=== PATIENT | female | born 1955 | race Caucasian/White ===

== ENCOUNTER 2018-09-28 17:15 | Emergency (ER) | payer BC ==
--- NOTE | 2018-09-28 17:52 | EDM.PDOC ---
ED HPI GENERAL MEDICAL PROBLEM - General Chief Complaint: Lower Extremity Injury/Pain Stated Complaint: FOOT INJURY Time Seen by Provider: 09/28/18 17:50 - History of Present Illness INITIAL COMMENTS - FREE TEXT/NARRATIVE: HISTORY AND PHYSICAL: History of present illness: Patient is 62-year-old female presents status post injury to her right foot ankle and knee when she stepped into a hole earlier today. There is no other trauma or concern. She does have a history of 2 years status post total right knee replacement Review of systems: As per history of present illness and below otherwise all systems reviewed and negative. Past medical history: As per history of present illness and as reviewed below otherwise noncontributory. Surgical history: As per history of present illness and as reviewed below otherwise noncontributory. Social history: No reported history of drug or alcohol abuse. Family history: As per history of present illness and as reviewed below otherwise noncontributory. Physical exam: HEENT: Atraumatic, normocephalic, pupils reactive, negative for conjunctival pallor or scleral icterus, mucous membranes moist, throat clear, neck supple, nontender, trachea midline. Lungs: Clear to auscultation, breath sounds equal bilaterally, chest nontender. Heart: S1S2, regular, negative for clicks, rubs, or JVD. Abdomen: Soft, nondistended, nontender. Negative for masses or hepatosplenomegaly. Negative for costovertebral tenderness. Pelvis: Stable nontender. Genitourinary: Deferred. Rectal: Deferred. Extremities: Dorsal lateral aspect of foot is noted some swelling and mild tenderness?no point tenderness some mild tenderness and swelling in region of lateral malleolus of her right ankle Achilles tendon is intact knee is grossly stable Neuro: Awake, alert, oriented. Cranial nerves II through XII unremarkable. Cerebellum unremarkable. Motor and sensory unremarkable throughout. Exam nonfocal. Diagnostics: X-ray right foot/ankle/knee Therapeutics: To be determined Impression: #1 acute right foot/ankle/knee injury Definitive disposition and diagnosis as appropriate pending reevaluation and review of above. Right Foot Pain Score (Numeric/FACES): 6 - Related Data Allergies Allergy/AdvReac Type Severity Reaction Status Date / Time aspirin Allergy Airway Verified 09/28/18 17:31 Tightness diphenhydramine Allergy Other Verified 09/28/18 17:31 [From Benadryl] Penicillins Allergy Itching Verified 09/28/18 17:31 ranitidine [From Zantac] Allergy Airway Verified 09/28/18 17:31 Tightness sulfamethoxazole Allergy Redness Verified 09/28/18 17:31 [From Bactrim] trimethoprim [From Bactrim] Allergy Redness Verified 09/28/18 17:31 c-clor Allergy Itching Uncoded 09/28/18 17:31 Home Meds: Home Meds Pantoprazole Sodium [Protonix] 20 mg PO DAILY 09/28/18 [History] Past Medical History - Infectious Disease History Infectious Disease History: Reports: Chicken Pox, Measles, Mumps - Past Surgical History GI Surgical History: Reports: Cholecystectomy Female Surgical History: Reports: Hysterectomy Musculoskeletal Surgical History: Reports: Knee Replacement, Shoulder Surgery Other Musculoskeletal Surgeries/Procedures:: bilaterally Social & Family History - Family History Family Medical History: Noncontributory - Tobacco Use Smoking Status *Q: Never Smoker - Caffeine Use Caffeine Use: Reports: Coffee, Tea - Recreational Drug Use Recreational Drug Use: No Review of Systems - Review of Systems Review Of Systems: ROS reveals no pertinent complaints other than HPI. ED EXAM, GENERAL - Physical Exam Exam: See Below (See dictation) Course - Vital Signs Last Recorded V/S: Last Vital Signs Temp 36.4 C 09/28/18 17:32 Pulse 91 09/28/18 17:32 Resp 17 09/28/18 17:32 BP 136/87 09/28/18 17:32 Pulse Ox 94 L 09/28/18 17:32 - Orders/Labs/Meds Orders: Active Orders 24 hr Category Date Time Status Ankle 2V Rt [CR] Stat Exams 09/28/18 17:52 Taken Foot 2V Rt [CR] Stat Exams 09/28/18 17:52 Taken Knee 1V or 2V Rt [CR] Stat Exams 09/28/18 17:52 Taken Departure - Departure Time of Disposition: 18:35 Disposition: Home, Self-Care 01 Condition: Good Clinical Impression: Ankle injury, Foot injury, Knee injury - Discharge Information Referrals: PCP,Unknown [Primary Care Provider] - Forms: ED Department Discharge Additional Instructions: The following information is given to patients seen in the emergency department who are being discharged to home. This information is to outline your options for follow-up care. We provide all patients seen in our emergency department with a follow-up referral. The need for follow-up, as well as the timing and circumstances, are variable depending upon the specifics of your emergency department visit. If you don't have a primary care physician on staff, we will provide you with a referral. We always advise you to contact your personal physician following an emergency department visit to inform them of the circumstance of the visit and for follow-up with them and/or the need for any referrals to a consulting specialist. The emergency department will also refer you to a specialist when appropriate. This referral assures that you have the opportunity for followup care with a specialist. All of these measure are taken in an effort to provide you with optimal care, which includes your followup. Under all circumstances we always encourage you to contact your private physician who remains a resource for coordinating your care. When calling for followup care, please make the office aware that this follow-up is from your recent emergency room visit. If for any reason you are refused follow-up, please contact the [facility] emergency department at and asked to speak to the emergency department charge nurse. Motrin/Tylenol as directed crutches as directed follow-up primary medical doctor /orthopedics surgery is needed as discussed return as needed as discussed - My Orders Last 24 Hours: My Active Orders 09/28/18 17:52 Ankle 2V Rt [CR] Stat Foot 2V Rt [CR] Stat Knee 1V or 2V Rt [CR] Stat - Assessment/Plan Last 24 Hours: My Active Orders 09/28/18 17:52 Ankle 2V Rt [CR] Stat Foot 2V Rt [CR] Stat Knee 1V or 2V Rt [CR] Stat
--- NOTE | 2018-09-28 19:14 | CR ---
Indication: Stepped in gopher hole Technique: Right ankle 2 views. Comparison: None Findings: Bones: No evidence of fracture. Well-formed plantar heel spur. Joint spaces: Unremarkable. Soft tissues: Unremarkable. Impression: No evidence of fracture or dislocation. Dictated by Randolph Albrecht MD @ Sep 28 2018 7:12PM Signed by Dr. Randolph Albrecht @ Sep 28 2018 7:13PM
--- NOTE | 2018-09-28 19:16 | CR ---
Indication: Knee pain Technique: Right knee 2 views Comparison: None Findings: Bones: Alignment is normal. No fractures or bone lesions. Joint spaces: Status post right total knee replacement. Trace knee effusion Soft tissues: Unremarkable. Impression: Status post right total knee replacement with trace knee effusion. Dictated by Randolph Albrecht MD @ Sep 28 2018 7:13PM Signed by Dr. Randolph Albrecht @ Sep 28 2018 7:14PM
--- NOTE | 2018-09-28 19:16 | CR ---
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 Enlarge plantar calcaneal spur is present. Joint: See above. No significant ankle effusion is seen. Soft tissue: Unremarkable. No radiopaque foreign bodies are seen. IMPRESSION: 1. No acute osseous injuries or abnormalities are noted. Dictated by Akira Delvalle MD @ 09/28/2018 7:14:20 PM Dictated by: Akira Delvalle MD @ 09/28/2018 19:14:24 (Electronically Signed)
== END 2018-09-28 18:51 | disposition home or self-care (01) ==
LOC: MW.ED 17:15
DX: S99.911A Unspecified injury of right ankle, initial encounter (principal); S99.921A Unspecified injury of right foot, initial encounter; S89.91XA Unspecified injury of right lower leg, initial encounter; Z88.6 Allergy status to analgesic agent; Z88.2 Allergy status to sulfonamides; Z88.1 Allergy status to other antibiotic agents; Z88.0 Allergy status to penicillin; Z90.49 Acquired absence of other specified parts of digestive tract; Z90.710 Acquired absence of both cervix and uterus; Z96.651 Presence of right artificial knee joint; W17.2XXA Fall into hole, initial encounter
CPT/HCPCS: 73560-26-RT; 73560-RT; 73600-26-RT; 73600-RT; 73620-26-RT; 73620-RT; 99283-25